=== PATIENT | female | born 1990 | race Caucasian/White ===

== ENCOUNTER 2017-02-09 10:36 | Inpatient (IN) ==
[2017-02-09] MEDS ORDERED: Naloxone 0.4 MG/ML INJ IVP PRN (10:51)
[2017-02-09] MEDS ORDERED: Famotidine 20 MG/2 ML VIAL IVP PRN (10:51)
[2017-02-09] MEDS ORDERED: Ondansetron 4 MG/2 ML VIAL IVP PRN (10:51)
[2017-02-09] MEDS ORDERED: Penicillin G Potassium 5,000,000 UNIT in 0.9 % Sodium Chloride Mini Bag 100 ML IVPB ONE (10:53)
[2017-02-09] MEDS ORDERED: miSOPROStol 100 MCG TABLET PO STA (10:53)
--- NOTE | 2017-02-09 11:16 | OB/GYN History & Physical ---
Date of Encounter: 02/09/17 Time of Encounter: 11:12 Assessment and Plan (1) 38 weeks gestation of Current visit: Yes Status: Acute admitted for delivery (2) Group B streptococcal infection during Current visit: Yes Status: Acute Will start PCN per protocol (3) Gestational hypertension Current visit: Yes Status: Acute serial BPs PIH labs medication if needed. Qualifiers: Trimester: third trimester Qualified Code(s): O13.3 - Gestational [ -induced] hypertension without significant proteinuria, third trimester History of Present Illness Chief complaint: Elevated BP in , IOL HPI: Ms. Ospina is a 26 year old female at 38w3d presents to labor and delivery after visit for elevated BP. Patient had BPs of 145/90, 167/ 97 and 176/101. Patient denies visual disturbances or epigastric pain. Discussed patient with Dr. Patton and delivery was recommended. Patient reports + FM, denies LOF or VB. Blood type: O+, Rubella: Immune, Hep B: nonreactive, GBS: Negative Past Med Surg Social Fam HX - Past Medical History Source: patient Medical history: no medical history Psychiatric history: no psych history - Past Surgical History Surgical History: no surgical history - Social History Smoking Status: Never smoker Smokeless Tobacco Status: No Drug use: none Occupational status: employed Current living situation: Home - Independent Activity Level: Independent ambulation Recent Out of Country Travel Within the Last 8 Weeks: No Exposure or Possible Exposure to Illness During Travel: No Obstetrical History - Pregnancies : 1 Para: 0 Term: 0 : 0 Ab's: 0 Livin Review of System OB - Constitutional Constitutional ROS IM: no fatigue, no fever(s), no headache(s) - Cardiovascular Cardiovascular: edema, no chest pain, no lightheadedness, no palpitations, no syncope - Respiratory Respiratory: no cough, no dyspnea - Gastrointestinal Gastrointestinal: cramping, no constipation, no diarrhea, no heartburn, no nausea, no vomiting - Genitourinary Genitourinary: no abnormal vaginal bleeding, no dysuria, no flank pain, no urinary frequency, no urinary urgency, no vaginal discharge, no vaginal odor, no vaginal pruritis Exam - Constitutional Constitutional: well developed, well nourished, no acute distress, obese - HEENT HEENT: Normocephaly, Mucus Membranes Moist - Neck Neck exam: full ROM, supple - Lungs Respiratory exam: CTAB - Cardiovascular Cardiovascular exam: RRR, +S1, +S2 - Abdomen Abdomen: Present: bowel sounds normal, gravid, non tender - Extremities Extremities exam: full ROM, pedal edema (1+ bilateral lower extremeties) Deep Tendon Reflex Grade: 2+ Normal - Cervix Dilation: 4 Effacement: 70 Station: -1 - Uterus Uterus exam: Present: normal size, normal contour - Anus/Rectum Anus/Rectum: Present: normal perianal skin - Comments Comments: FHR 135 bpm moderate variability +15x15 accesl no decels noted. no contractions noted at this time. Results All other labs normal. - VTE Reasons for not Prescribing Prophylaxis: Treatment not Indicated - Low risk for VTE
[2017-02-09 11:30] LABS: Basophils % 0.2 %; Eosinophils % 0.2 %; Hematocrit 35.9 % (35.3-44.9); Hemoglobin 11.9 g/dL (11.5-15.4); Immature Granulocytes % 0.2 % (0-4); Lymphocytes # 1.7 K/mcL (0.6-4.6); Mean Corpuscular HGB Conc 33.1 g/dL (31.6-35.5); Mean Corpuscular Hemoglobin 30.9 pg (28.0-33.3); Mean Corpuscular Volume 93.2 fL (83.0-100.0); Mean Platelet Volume 10.4 fL (9.4-12.4); Monocytes # 0.6 K/mcL (0.0-1.3); Monocytes % 6.4 %; Neutrophils # 6.3 K/mcL (1.6-8.9); Platelet Count 203 K/mcL (140-400); Red Blood Count 3.85 M/mcL (3.82-4.97); Red Cell Distribution Width 14.1 % (11.5-14.5)
[2017-02-09 11:43] LABS: Alanine Aminotransferase 34 Units/L (0-55); Aspartate Amino Transferase 26 Units/L (5-34); BUN/Creatinine Ratio 25 (6-26); Blood Urea Nitrogen 15 mg/dL (7-20); Lactate Dehydrogenase 181 Units/L (159-327); Uric Acid 4.5 mg/dL (2.6-6.0); eGFR For African Americans > 60 (> 60); eGFR For Non-African Americans > 60 (> 60)
[2017-02-09 11:54] LABS: Amphetamine Screen,Urine Negative ng/mL (Cutoff=1000); Barbiturate Screen,Urine Negative ng/mL (Cutoff=200); Benzodiazepines Screen,Urine Negative ng/mL (Cutoff=200); Cannabinoid Screen,Urine Negative ng/mL (Cutoff = 50); Cocaine Screen,Urine Negative ng/mL (Cutoff= 300); Opiate Screen,Urine Negative ng/mL (Cutoff=300); Phencyclidine Screen,Urine Negative ng/mL (Cutoff=25)
[2017-02-09] MEDS: Ringers Solution, Lactated 1,000 ML IVC SCH (12:19)
[2017-02-09 13:05] LABS: Protein/Creatinine Ratio,Urine 0.18 mg/mg (0-0.20)
[2017-02-09] MEDS: Penicillin G Potassium 2,500,000 UNIT in D5% in Water 100 ML IVPB SCH ×2 (16:54→21:17)
--- NOTE | 2017-02-09 17:10 | OB Labor Progress Note ---
Date of Encounter: 02/09/17 Time of Encounter: 17:08 Labor Progress Note - Subjective Subjective: Patient resting comfortably. Discussed POC with patient. Patient denies any questions or concerns. - Cervix Cervix: 4.5/70/-1 - Heart Tones Heart Tones: 140 bpm moderate variability - [place]: irregular - Interventions Interventions: SVE, AROM small amount of clear fluid. IUPC placed without difficulty. - Plan Plan: Continue labor management.
[2017-02-09] MEDS ORDERED: Oxytocin 20 units/ LR 1000 mL 20 UNIT/1,000 ML BAG IVC SCH (18:15)
[2017-02-09] MEDS ORDERED: Epidural Premix (fent/bupiv) 110 ML EP ONE (19:02)
--- NOTE | 2017-02-09 19:36 | Anesthesia Evaluation PreOp ---
Date of Encounter: 02/09/17 Time of Encounter: 19:09 - Past History Planned Operation: vaginal del, G1 induction ROM Cardiac History: HTN (recent gestational) Pulmonary History: Denies Any Significant HX [employer] MANAGER History: Denies Any Significant HX Other Medical History: Denies Any Significant HX Anesthesia History: No Prior Anesthetic Complications, Past Anesthesia : Yes (term) Alcohol Use: none Drug use: none Medications and Allergies 3 Allergy/AdvReac Type Severity Reaction Status Date / Time No Known Allergies Allergy Verified 02/09/17 12:18 Anesthesia Results - Labs 02/09/17 11:18 02/09/17 11:18 Anesthesia Exam - HEENT Pupil (Motor): Pupils equal Mallampati: II Teeth: Normal Oral Opening: Greater than 3 - [employer]IOR PROJECT MANAGER LOC: Oriented [employer] PROJECT MANAGER Motor: Normal RUE, Normal LUE, Normal RLE, Normal LLE, Normal Face [employer] PROJECT MANAGER Sensory: Normal: RUE, LUE, RLE, LLE, Face - Cardiac Rhythm: Regular Murmur: None - Pulmonary Breath Sounds: bilateral Clear Respiratory Effort: Symmetrical Anesthesia Assess/Plan ASA Score: 3 Modified [place] Scale for Level of Consciousness: Cooperative, oriented, and tranquil Anesthetic Plan: General, Regional Monitoring Plan: Standard Monitors
--- NOTE | 2017-02-09 19:39 | Anesthesia Procedures ---
Date of Encounter: 02/09/17 Time of Encounter: 19:09 Procedures: Anesthesia - Epidural/Spinal Patient ID/Chart reviewed: Yes Patient examined: Yes OB Eval: : 1 OB Eval: Dilated at (cm): 6 OB Eval: Contractions: Non-stressed pattern Consent Obtained: Yes Supplemental Oxygen: None/Room Air Site Prep: Aseptic Technique, Sterile prep and drape, 0.5% Chlorhexidine/Alcohol Patient position: upright Local Anesthetic: Lidocaine 1% Amount of Local Anesthetic used: 2 Touhy Needle Gauge: 18 Touhy Needle Depth (cm): 9 Catheter Depth at Skin (cm): 14 Test Dose (1.5% Lido + Epi): Volume given (mls): 3 Test Dose Result: Negative Loading Dose: Other: 12ml from solution Loading Dose Administered: Thru Catheter Infusion Med: 0.125% Bupivacaine w/ 2 mcg/ml Fentanyl Infusion Rate (mls/hr): [address]: Tegaderm, Tape Interspace Used: L3-L4 Loss of Resistance (FERMÍN): Yes (saline) Blood: No CSF: No Paresthesia: No Procedure: vss though out, FHR stable per RN's
[2017-02-10] MEDS ORDERED: Epidural Premix (fent/bupiv) 110 ML EP ONE ×2 (00:54→07:02)
[2017-02-10] MEDS: Penicillin G Potassium 2,500,000 UNIT in D5% in Water 100 ML IVPB SCH ×3 (00:56→08:45)
[2017-02-10] MEDS ORDERED: Acetaminophen 325 MG TABLET PO ONE (02:42)
[2017-02-10] MEDS: Ringers Solution, Lactated 1,000 ML IVC SCH ×2 (03:19→08:44)
[2017-02-10] MEDS ORDERED: Acetaminophen 325 MG TABLET PO PRN ×2 (08:35→09:59)
[2017-02-10] MEDS ORDERED: Measles/Mumps/Rubella Vacc 0.5 ML VIAL SQ PRN (09:59)
[2017-02-10] MEDS ORDERED: Lanolin 7 G OINT...G. TP PRN (09:59)
[2017-02-10] MEDS ORDERED: Benzocaine/Menthol 56 GM AEROSOL SPRAY TP PRN (09:59)
[2017-02-10] MEDS ORDERED: Ibuprofen 600 MG TABLET PO PRN (09:59)
[2017-02-10] MEDS ORDERED: *HR* HYDROcodone/Acet 5/325 mg TABLET PO PRN (09:59)
[2017-02-10] MEDS ORDERED: Oxytocin 20 units/ LR 1000 mL 20 UNIT/1,000 ML BAG IVC SCH (10:00)
--- NOTE | 2017-02-10 10:09 | OB/GYN Procedure Note ---
Delivery - Delivery Date: 02/10/17 Provider: Jaja Grant Intrapartum events: none Delivery induction: AROM, oxytocin, misoprostol Delivery monitor: external FHT, external uterine, internal uterine Anesthesia: epidural Estimated Blood Loss: 400 - (s) Infant A Delivery Date: 02/10/17 Delivery Time: 09:22 Presentation: face or brow Position: OA Gender: Female Viability: Viable Pounds: 7 Ounces: 10 Weight Gram: 3.47 kg at 1 minute: 9 at 5 mins: 9 Shoulder Dystocia: not encountered Specimens collected: cord blood Placenta: spontaneous Cord: 3 umbilical vessels - Repair Episiotomy: none Laceration Description: Periurethral (bilateral repaired with 4-0 vicryl), Perineal - 1st Degree (repaired wit 3-0 vicryl) - Complications Delivery complications: none - Disposition Mom disposition: stable in LDR disposition: stable in LDR - Comments Comments: Called to LDR patient feeling pressure. Patient placed in stirrups and prepped for delivery. Under maternal effort patient spontaneously delivered a viable female over a 1st degree perineal laceration. Bilateral periurethrals noted as well. Infant placed on maternal abdomen. No nuchal cord, meconium or shoulder dystocia encountered. Cord was clamped and cut after pulsation ceased. First degree perineal laceration was repaired with 4-0 vicryl and bilateral periurethral lacerations repaired with 4-0 vicryl. Placenta delivered spontaneously and intact. Pericare provided, all counts correct. Both mother and stable in LDR for 2 hour recovery.
--- NOTE | 2017-02-11 07:38 | Discharge Summary ---
Date of Encounter: 02/11/17 Time of Encounter: 07:35 - Discharge Diagnosis (1) Vaginal delivery Priority: Primary Status: Acute Comments: Post Day 1 Pain is well controlled Lochia light and without clots VSS Tolerating regular diet, voiding and passing flatus without difficulty Breast feeding is going well Discharge home today - Discharge Medications Prescriptions: Ibuprofen [Motrin] 600 mg PO Q6HR PRN #30 tablet PRN Reason: Cramping Docusate [Colace] 100 mg PO BID PRN #20 capsule PRN Reason: Constipation Ferrous Sulfate 325 mg PO DAILY #30 tablet Home Medications: Acetaminophen [Tylenol] 650 mg PO Q6HR PRN tablet 02/11/17 [Rx] Benzocaine/Menthol [place] [Dermoplast [place]] 1 appl TP QID PRN aerosol 02/11/17 [Rx] Docusate [Colace] 100 mg PO BID PRN #20 capsule 02/11/17 [Rx] Ferrous Sulfate 325 mg PO DAILY #30 tablet 02/11/17 [Rx] Ibuprofen [Motrin] 600 mg PO Q6HR PRN #30 tablet 02/11/17 [Rx] Lanolin [Lansinoh] 1 appl TP TID PRN oint...g. 02/11/17 [Rx] Vit/FA 1 each PO DAILY tablet 02/11/17 [Rx] Allergies/Adverse Reactions: 3 Allergy/AdvReac Type Severity Reaction Status Date / Time No Known Allergies Allergy Verified 02/09/17 12:18 Data Procedures and tests throughout hospitalization: Laboratory Tests 02/09/17 02/09/17 02/09/17 11:18 11:18 11:18 WBC 8.6 RBC 3.85 Hgb 11.9 Hct 35.9 MCV 93.2 MCH 30.9 MCHC 33.1 RDW 14.1 Plt Count 203 MPV 10.4 Immature Gran % 0.2 Seg Neutrophils % 73.0 Lymphocytes % 20.0 Monocytes % 6.4 Eosinophils % 0.2 Basophils % 0.2 Neutrophils # 6.3 Lymphocytes # 1.7 Monocytes # 0.6 Eosinophils # 0.0 Basophils # 0.0 BUN 15 Creatinine 0.61 Est GFR ( Amer) > 60 Est GFR (Non-Af Amer) > 60 BUN/Creatinine Ratio 25 Uric Acid 4.5 AST 26 ALT 34 Lactate Dehydrogenase 181 Urine Creatinine Protein/Creatinin Ratio Urine Total Protein Urine Opiates Screen Negative Ur Barbiturates Screen Negative Ur Phencyclidine Scrn Negative Ur Amphetamines Screen Negative U Benzodiazepines Scrn Negative Urine Cocaine Screen Negative U Marijuana (THC) Screen Negative 02/09/17 11:18 WBC RBC Hgb Hct MCV MCH MCHC RDW Plt Count MPV Immature Gran % Seg Neutrophils % Lymphocytes % Monocytes % Eosinophils % Basophils % Neutrophils # Lymphocytes # Monocytes # Eosinophils # Basophils # BUN Creatinine Est GFR ( Amer) Est GFR (Non-Af Amer) BUN/Creatinine Ratio Uric Acid AST ALT Lactate Dehydrogenase Urine Creatinine 177 Protein/Creatinin Ratio 0.18 Urine Total Protein 31 H Urine Opiates Screen Ur Barbiturates Screen Ur Phencyclidine Scrn Ur Amphetamines Screen U Benzodiazepines Scrn Urine Cocaine Screen U Marijuana (THC) Screen Date of admission: 02/09/17 10:36 Primary care physician: Vance Pena Jr, MD Consults: 02/10/17 09:59 Consult to Cloth Spreader [CONS] Routine Comment: Vaginal delivery, consult needed Discharging clinician: Martha Angel Anticipated date of discharge: 02/11/17 - Patient Status Disposition: Home, Self-Care Condition: Good Functional capacity at discharge: independent ambulation Overall status at discharge: patient is back to baseline - Discharge Instructions Follow Up With: Vance Pena Jr, MD [Primary Care Provider] - Jaja Grant CNM [Non-Partnered Physician] - - Diet and Activity Activity: increase activity as tolerated Diet: regular diet Hospital Course Reason for admission: induction of labor (HTN), IUP at term Delivery: Episiotomy: none Laceration: other (Bilateral periurethral) Other procedures: none complications: none Discharge diagnosis: IUP at term delivered [place] baby: female Time Attestation: Total time spent providing and/or coordinating discharge services: Time Spent: Less than 30 minutes Exam - Constitutional Vitals: Temp Pulse Resp BP Pulse Ox 98.0 F 80 16 115/70 96 02/11/17 03:30 02/11/17 03:30 02/11/17 03:30 02/11/17 03:30 02/11/17 03:30 General appearance IM: cooperative, A&O X 3, pleasant - Respiratory Respiratory exam: Present: CTAB - Cardiovascular Cardiovascular exam IM: Present: RRR, +S1, +S2 - GI/Abdominal GI/Abdominal exam IM: normal bowel sounds, soft - Rectal Rectal exam: deferred - Uterine Tone: Firm Uterus Position: At Umbilicus, Midline - Extremities Exam Extremities exam IM: Present: normal capillary refill, normal inspection, pedal edema, radial pulses palpable and symmetrical - Neurological Exam Neurological exam: alert, oriented X3
[2017-02-11 08:11] VITALS: BP 135/87
[2017-02-11] MEDS ORDERED: Prenatal Vit/FA 1 EACH TABLET PO SCH (09:00)
== END 2017-02-11 13:30 | disposition home or self-care (01) | DRG 774 ==
LOC: 1NENULAB 10:36 → 1NENUOBS 02-10 12:06
PROVIDERS: ADMIT Advanced Practice Midwife; ATTEND Advanced Practice Midwife

== ENCOUNTER 2021-01-14 14:12 | Inpatient (IN) ==
[2021-01-14] MEDS ORDERED: Famotidine 20 MG/2 ML VIAL IVP PRN (14:18)
[2021-01-14] MEDS ORDERED: Azithromycin 500 MG in 0.9 % Sodium Chloride 250 ML IVPB PRN (14:18)
[2021-01-14] MEDS ORDERED: Lidocaine 1% 20 ML MDV ID PRN (14:18)
[2021-01-14] MEDS ORDERED: Naloxone 0.4 MG/ML INJ IVP PRN (14:18)
[2021-01-14] MEDS ORDERED: *HR* Nalbuphine 10 MG/ML AMPUL IV PRN (14:18)
[2021-01-14] MEDS ORDERED: Ondansetron 4 MG/2 ML VIAL IVP PRN (14:18)
[2021-01-14] MEDS ORDERED: Metoclopramide 10 MG/2 ML VIAL IVP PRN (14:18)
[2021-01-14] MEDS ORDERED: Penicillin G Potassium 5,000,000 UNIT in 0.9 % Sodium Chloride Mini Bag 100 ML IVPB ONE (14:22)
[2021-01-14] MEDS ORDERED: Ringers Solution, Lactated 1,000 ML IVC SCH (14:30)
[2021-01-14 15:20] LABS: Basophils % 0.2 %; Eosinophils % 0.2 %; Hematocrit 35.1 % (35.3-44.9); Hemoglobin 11.9 g/dL (11.5-15.4); Immature Granulocytes % 0.4 % (0-4); Mean Corpuscular HGB Conc 33.9 g/dL (31.6-35.5); Mean Corpuscular Hemoglobin 32.9 pg (28.0-33.3); Mean Platelet Volume 10.6 fL (9.4-12.4); Monocytes # 0.4 K/mcL (0.0-1.3); Monocytes % 5.1 %; Neutrophils # 6.7 K/mcL (1.6-8.9); Platelet Count 170 K/mcL (140-400); Red Blood Count 3.62 M/mcL (3.82-4.97); Red Cell Distribution Width 12.6 % (11.5-14.5); Segmented Neutrophils % 82.1 %; White Blood Count 8.1 K/mcL (4.3-11.1)
[2021-01-14 15:29] LABS: Amphetamine Screen,Urine Negative ng/mL (Cutoff=1000); Barbiturate Screen,Urine Negative ng/mL (Cutoff=200); Benzodiazepines Screen,Urine Negative ng/mL (Cutoff=200); Cannabinoid Screen,Urine Negative ng/mL (Cutoff = 50); Cocaine Screen,Urine Negative ng/mL (Cutoff= 300); Opiate Screen,Urine Negative ng/mL (Cutoff=300); Phencyclidine Screen,Urine Negative ng/mL (Cutoff=25)
[2021-01-14 16:13] LABS: Influenza A PCR Negative (Negative); Influenza B PCR Negative (Negative); Resp. Syncytial Virus PCR Negative (Negative)
[2021-01-14 16:14] LABS: SARS-CoV-2 by PCR (In House) Negative (Negative)
[2021-01-14 17:29] LABS: Creatinine,Urine 99 mg/dL; Protein/Creatinine Ratio,Urine 0.25 mg/mg (0.00-0.20)
[2021-01-14 17:39] LABS: Alanine Aminotransferase 25 Units/L (7-52); Aspartate Amino Transferase 31 Units/L (13-39); BUN/Creatinine Ratio 23 (6-26); Blood Urea Nitrogen 13 mg/dL (6-20); Lactate Dehydrogenase 257 Units/L (140-271); Uric Acid 4.7 mg/dL (2.3-7.6); eGFR For African Americans > 60 (> 60); eGFR For Non-African Americans > 60 (> 60)
[2021-01-14] MEDS ORDERED: Penicillin G Potassium 2,500,000 UNIT/105 ML MLS IVPB SCH (19:00)
[2021-01-14] MEDS ORDERED: Oxytocin 20 units/ LR 1000 mL 20 UNIT/1,000 ML BAG IVC ONE (21:00)
[2021-01-14] MEDS ORDERED: Benzocaine/Menthol 56 GM AEROSOL SPRAY TP ONE (21:47)
[2021-01-14] MEDS ORDERED: Ibuprofen 600 MG TABLET PO ONE (21:51)
[2021-01-15] MEDS ORDERED: Benzocaine/Menthol 56 GM AEROSOL SPRAY TP PRN (00:14)
[2021-01-15] MEDS ORDERED: Lanolin 7 G OINT...G. TP PRN (00:14)
[2021-01-15] MEDS ORDERED: Oxytocin 20 units/ LR 1000 mL 20 UNIT/1,000 ML BAG IVC SCH (00:14)
[2021-01-15] MEDS ORDERED: Ondansetron ODT 4 MG TAB.RAPDIS SL PRN (00:14)
[2021-01-15] MEDS: Acetaminophen 325 MG TABLET PO SCH ×3 (00:18→14:08)
[2021-01-15] MEDS: Ibuprofen 600 MG TABLET PO SCH ×3 (00:18→14:08)
[2021-01-15 05:52] LABS: Basophils % 0.1 %; Eosinophils % 0.1 %; Hematocrit 28.9 % (35.3-44.9); Immature Granulocytes % 0.5 % (0-4); Lymphocytes # 0.9 K/mcL (0.6-4.6); Lymphocytes % 6.2 %; Mean Corpuscular HGB Conc 33.2 g/dL (31.6-35.5); Mean Corpuscular Volume 96.3 fL (83.0-100.0); Monocytes # 0.9 K/mcL (0.0-1.3); Monocytes % 6.5 %; Neutrophils # 12.4 K/mcL (1.6-8.9); Platelet Count 150 K/mcL (140-400); Red Cell Distribution Width 12.6 % (11.5-14.5); Segmented Neutrophils % 86.6 %
[2021-01-15 05:58] LABS: Hemoglobin 9.6 g/dL (11.5-15.4); White Blood Count 14.3 K/mcL (4.3-11.1)
[2021-01-15] MEDS ORDERED: Prenatal Vit/FA 1 EACH TABLET PO SCH (09:00)
[2021-01-15 16:24] VITALS: BP 135/90; PULSE 90; TEMP 97.7; O2SAT 96
== END 2021-01-15 18:16 | disposition home or self-care (01) | DRG 806 ==
LOC: 1NENULAB 14:12 → 1NENUOBS 01-15 00:37
PROVIDERS: ADMIT Advanced Practice Midwife; ATTEND Advanced Practice Midwife